=== PATIENT | male | born 1990 | race Caucasian/White ===

== ENCOUNTER 2016-09-30 02:52 | Emergency (ER) | payer OTHER ==
[~2016-09-30] VITALS: Ht 193 cm; Wt 77.1 kg
--- NOTE | 2016-09-30 03:15 | ED GI/GU/ABDOMINAL COMPLAINT ---
History of Present Illness General Chief Complaint: General Adult Stated Complaint: "PER PT I THINK I HAVE KIDNEY STONE" Source: patient Exam Limitations: no limitations Vital Signs & Intake/Output Vital Signs & Intake/Output Vital Signs Date Time Temp Pulse Resp B/P Pulse O2 O2 Flow FiO2 Ox Delivery Rate 09/30 0533 97.7 71 18 118/67 98 Room Air 09/30 0511 100 Room Air 09/30 0300 97.2 89 18 141/74 99 Room Air Allergies Coded Allergies: Penicillins (09/30/16) Reconcile Medications Ibuprofen 800 MG TABLET 1 TAB PO TID PRN PAIN Ondansetron (Zofran Odt) 4 MG TAB.RAPDIS 1 TAB SL TID PRN NAUSEA Oxycodone HCl/Acetaminophen (Percocet 5-325 MG Tablet) 5 MG-325 MG TABLET 1 TAB PO 4XDP PRN PAIN TEN...[id number] Triage Note: PT FROM HOME C/O RIGHT SIDED FLANK TO BACK PAIN. PT STATES "I THINK IT MIGHT BE A KIDNEY STONE" Triage Nurses Notes Reviewed? yes Onset: Abrupt Duration: hour(s): Timing: single episode today Quality/Severity: sharpness, severe, stabbing Location: right flank Radiation: no radiation Activities at Onset: none Prior Abdominal Problems: none Modifying Factors: Worsens With: palpation. Associated Symptoms: abdominal pain, nausea/vomiting HPI: 26-year-old gentleman in prior good health presents with right lower flank pain for the past 2-3 hours. He states that he was in his usual state of health when suddenly he developed this sharp, severe pain in his right lower flank. He had mild nausea and tried to vomit. He states, "I was curled up in my bathroom crying." He states that he has had no fever chills dysuria diarrhea chest pain shortness of breath headache. He is otherwise well. Past History Travel History Traveled to [place] past 21 day No Medical History Any Pertinent Medical History? see below for history Surgical History Surgical History: none Psychosocial History What is your primary language Bruneian Tobacco Use: Never used ETOH Use: occasional use Illicit Drug Use: denies illicit drug use Family History Hx Contributory? No Review of Systems Review of Systems Constitutional: Reports: no symptoms. EENTM: Reports: no symptoms. Respiratory: Reports: no symptoms. Cardiovascular: Reports: no symptoms. GI: Reports: no symptoms. Genitourinary: Reports: no symptoms. Musculoskeletal: Reports: no symptoms. Skin: Reports: no symptoms. Neurological/Psychological: Reports: no symptoms. Hematologic/Endocrine: Reports: no symptoms. Immunologic/Allergic: Reports: no symptoms. All Other Systems: Reviewed and Negative Physical Exam Physical Exam General Appearance: well developed/nourished, mild distress, moderate distress Head: atraumatic, normal appearance Eyes: Bilateral: normal appearance. Ears, Nose, Throat, Mouth: hearing grossly normal Neck: normal inspection Respiratory: normal breath sounds, chest non-tender, no respiratory distress, quiet respiration, lungs clear Cardiovascular: regular rate/rhythm Gastrointestinal: normal bowel sounds, soft, non-tender, no organomegaly Back: normal inspection Extremities: normal range of motion Neurologic/Psych: no motor/sensory deficits, awake, alert, oriented x 3 Skin: intact, normal color, warm/dry Core Measures ACS in differential dx? No Severe Sepsis Present: No Septic Shock Present: No Progress Differential Diagnosis: pyelonephritis, ureterolithiasis, UTI/pyelo Plan of Care: Orders Procedure Date/time Status URINALYSIS 09/30 299 Complete LIPASE 09/30 0300 Complete COMPREHENSIVE METABOLIC PANEL 09/30 299 Complete CBC WITHOUT DIFFERENTIAL 09/30 299 Complete AMYLASE 09/30 030 Complete Laboratory Tests 09/30/16 0500: Urine Color YEL, Urine Clarity CLDY H, Urine pH 6.0, Ur Specific Starks >= 1.030, Urine Protein 100 H, Urine Ketones 15 H, Urine Nitrite NEG, Urine Bilirubin NEG@ICTO, Urine Urobilinogen 0.2, Ur Leukocyte Esterase NEG, Ur Microscopic SEDIMENT EXAMINED, Urine RBC >75 H, Urine WBC RARE, Urine Mucus FEW , Urine Hemoglobin LARGE H, Urine Glucose NEG 09/30/16 0310: Anion Gap 10, Estimated GFR > 60, BUN/Creatinine Ratio 15.6, Glucose 118 H, Calcium 9.2, Total Bilirubin 0.6, AST 26, ALT 40, Alkaline Phosphatase 44, Total Protein 7.0, Albumin 4.1, Globulin 2.9, Albumin/Globulin Ratio 1.4, Amylase < 30 L, Lipase 108, CBC w Diff NO MAN DIFF REQ, RBC 4.97, MCV 92.9, MCH 30.6, RDW 13.2, MPV 8.4, Gran % 52.2, Lymphocytes % 39.3, Monocytes % 6.1, Eosinophils % 2.0, Basophils % 0.4, Absolute Granulocytes 5.9, Absolute Lymphocytes 4.4 H, Absolute Monocytes 0.7 H, Absolute Eosinophils 0.2, Absolute Basophils 0, PUBS MCHC 33.0 Diagnostic Imaging: Viewed by Me: CT Scan. Discussed w/RAD: CT Scan. Radiology Impression: ABD/PELVIC CT... RIGHT HYDRO, MILD, 6MM PROXIMAL URETERAL STONE. FULL REPORT BELOW. Initial ED EKG: none Comments: PATIENT: KARAN GONZALEZ PRESENT AGE: 26 PATIENT ACCOUNT NO: [id number] : 88 LOCATION: [facility] ORDERING PHYSICIAN: PHILOMENA WILKINSON MD SERVICE DATE: 09/30/16 EXAM TYPE: CAT - CT ABD & PELVIS W/O IV CONTRAS EXAMINATION: CT ABDOMEN AND PELVIS WITHOUT CONTRAST CLINICAL INFORMATION: Right lower quadrant pain, kidney stone versus appendicitis COMPARISON: None TECHNIQUE: Multidetector volumetric imaging was performed from the superior aspect of the liver through the pubic symphysis. Sagittal and coronal reformatted images were obtained on the technologist's workstation. DLP: 300.03 mGy-cm FINDINGS: LUNG BASES: The visualized lung bases are unremarkable. LIVER, GALLBLADDER, AND BILIARY TREE: The liver is normal in size, shape, and attenuation. No focal hepatic lesion or biliary ductal dilatation is present. The gallbladder is unremarkable. PANCREAS: Unremarkable. SPLEEN: Borderline enlarged. ADRENAL GLANDS: Unremarkable. KIDNEYS AND URETERS: There is a proximal right ureteral calculus measuring 6 mm in length with mild hydronephrosis. No additional right-sided calculi are seen. There is a 2 mm calculus in the mid left kidney, without hydronephrosis. BLADDER: Unremarkable. GASTROINTESTINAL TRACT: The small and large bowel are unremarkable. The appendix is unremarkable. ABDOMINAL WALL: No significant hernia is appreciated. LYMPH NODES: No lymphadenopathy is seen, though assessment is somewhat limited in the absence of intravenous contrast. VASCULAR: Unremarkable. PELVIC VISCERA: Unremarkable. OSSEOUS STRUCTURES: Unremarkable. IMPRESSION: 1. Proximal right ureteral calculus measuring 6 mm with mild hydronephrosis. 2. Tiny left mid renal calculus without hydronephrosis. 3. Normal appendix. DICTATED BY: PONCE SANDERSON MD DATE/TIME DICTATED:02/423 BULKER:JEFF DATE/TIME TRANSCRIBED:09/30/16423 CONFIDENTIAL, DO NOT COPY WITHOUT APPROPRIATE AUTHORIZATION. <Electronically signed in Other Vendor System> SIGNED BY: PONCE SANDERSON MD 09/30/16 0435 Departure Departure Disposition: HOME OR SELF CARE Condition: Stable Clinical Impression Primary Impression: Kidney stone Secondary Impressions: Renal colic on right side Referrals: JUMANA DICKERSON DO (PCP/Family) Departure Forms: Customer Survey General Discharge Information Prescriptions: Current Visit Scripts Ibuprofen 1 TAB PO TID PRN PAIN #30 TAB Oxycodone HCl/Acetaminophen (Percocet 5-325 MG Tablet) 1 TAB PO 4XDP PRN PAIN #10 TAB TEN...[id number] Ondansetron (Zofran Odt) 1 TAB SL TID PRN NAUSEA #10 TAB Comments discussed at length with patient. he is feeling more comfortable after iv toradol and acetaminophen, still with mild discomfort. No active vomiting. discussed results at length with patient. he feels well enough to go home and will follow up with urology. home with rx for ibuprofen, percocet, zofran. close follow up advised.
[2016-09-30 03:26] LABS: ABSOLUTE BASOPHIL COUNT 0 /CUMM (0.0-0.2); ABSOLUTE EOSINOPHIL COUNT 0.2 /CUMM (0.0-0.7); ABSOLUTE GRANULOCYTE CT 5.9 /CUMM (1.4-6.5); ABSOLUTE LYMPH COUNT 4.4 /CUMM (1.2-3.4); ABSOLUTE MONOCYTE COUNT 0.7 /CUMM (0.10-0.60); BASOPHIL % 0.4 % (0.0-2.0); GRANULOCYTE % 52.2 % (42.2-75.2); HEMATOCRIT 46.1 % (42-52); MEAN CORPUSCULAR HGB 30.6 PG (27.0-31.0); MEAN CORPUSCULAR VOLUME 92.9 FL (80.0-94.0); MEAN PLATELET VOLUME 8.4 FL (7.4-10.4); PLATELET COUNT 203 /CUMM (130-400); RBC DISTRIBUTION WIDTH 13.2 % (11.5-14.5); RED BLOOD CELL CT 4.97 /CUMM (4.70-6.10); WHITE BLOOD CELL COUNT 11.3 /CUMM (4.8-10.8)
--- NOTE | 2016-09-30 04:35 | CT SCAN REPORT ---
EXAMINATION: CT ABDOMEN AND PELVIS WITHOUT CONTRAST CLINICAL INFORMATION: Right lower quadrant pain, kidney stone versus appendicitis COMPARISON: None TECHNIQUE: Multidetector volumetric imaging was performed from the superior aspect of the liver through the pubic symphysis. Sagittal and coronal reformatted images were obtained on the technologist's workstation. DLP: 300.03 mGy-cm FINDINGS: LUNG BASES: The visualized lung bases are unremarkable. LIVER, GALLBLADDER, AND BILIARY TREE: The liver is normal in size, shape, and attenuation. No focal hepatic lesion or biliary ductal dilatation is present. The gallbladder is unremarkable. PANCREAS: Unremarkable. SPLEEN: Borderline enlarged. ADRENAL GLANDS: Unremarkable. KIDNEYS AND URETERS: There is a proximal right ureteral calculus measuring 6 mm in length with mild hydronephrosis. No additional right-sided calculi are seen. There is a 2 mm calculus in the mid left kidney, without hydronephrosis. BLADDER: Unremarkable. GASTROINTESTINAL TRACT: The small and large bowel are unremarkable. The appendix is unremarkable. ABDOMINAL WALL: No significant hernia is appreciated. LYMPH NODES: No lymphadenopathy is seen, though assessment is somewhat limited in the absence of intravenous contrast. VASCULAR: Unremarkable. PELVIC VISCERA: Unremarkable. OSSEOUS STRUCTURES: Unremarkable. IMPRESSION: 1. Proximal right ureteral calculus measuring 6 mm with mild hydronephrosis. 2. Tiny left mid renal calculus without hydronephrosis. 3. Normal appendix.
[2016-09-30 05:33] VITALS: BP 118/67
[2016-09-30] MEDS ORDERED: PERCOCET 5-3251 EACH PO (05:35)
[2016-09-30] MEDS ORDERED: IBUPROFEN800 M1 PO (05:35)
[2016-09-30] MEDS ORDERED: ZOFRAN ODT4 M1 SL (05:35)
== END 2016-09-30 05:50 ==
LOC: ERH 02:52
PROVIDERS: Pediatrics
DX: N20.0 Calculus of kidney (principal); N23 Unspecified renal colic
CPT/HCPCS: 74176; 81001; 96361; 96365; 96375; J0131; J1885; J2405